=== PATIENT | female | born 1970 | race Two or more races ===

== ENCOUNTER 2017-09-23 12:33 | Day surgery (SDC) | payer OTHER ==
[2017-09-22 18:06] VITALS: BMI 29.5
[2017-09-23] MEDS ORDERED: MIDAZOLAM HCL 2 MG/2 ML SINGLE DOSE VIAL ONE (13:06)
--- NOTE | 2017-09-23 14:16 | HP ---
Admitting History and Physical - Admission Chief Complaint: Endometrial polyp History of Present Illness: 46 yo Para 1 with h/o endometrial polyp is pre op for D&C hysteroscopy. She's on Metformin for Diabetes. History Source: Patient Limitations to Obtaining History: No Limitations - Past Medical History ...LMP: 09/14/17 ...LMP Comment: REGULAR ...: No ...: 3 ...Para: 1 - Past Surgical History Past Surgical History: Yes: None - Smoking History Smoking history: Never smoked Have you smoked in the past 12 months: No - Alcohol/Substance Use Hx Alcohol Use: No - Social History Usual Living Arrangement: Yes: With Child History of Recent Travel: No Home Medications - Allergies Allergies/Adverse Reactions: Allergies Allergy/AdvReac Type Severity Reaction Status Date / Time No Known Drug Allergies Allergy Verified 09/22/17 18:06 - Home Medications Home Medications: Ambulatory Orders Glipizide [Glipizide ER] 1 tab PO DAILY 09/22/17 Janumet 50-1,000 mg Tablet 1 tab PO BID 09/22/17 Family Disease History - Family Disease History Family History: Unremarkable Review of Systems - Review of Systems Constitutional: reports: No Symptoms Eyes: reports: No Symptoms HENT: reports: No Symptoms Neck: reports: No Symptoms Cardiovascular: reports: No Symptoms Respiratory: reports: No Symptoms Gastrointestinal: reports: No Symptoms Genitourinary: reports: No Symptoms Breasts: reports: No Symptoms Reported Musculoskeletal: reports: No Symptoms Neurological: reports: No Symptoms Psychiatric: reports: No Symptoms Pain Intensity: 0 Physical Examination Vital Signs: Vital Signs Temperature 98.0 F 09/23/17 13:36 Pulse Rate 99 H 09/23/17 13:36 Respiratory Rate 16 09/23/17 13:36 Blood Pressure 126/89 09/23/17 13:36 O2 Sat by Pulse Oximetry (%) 99 09/23/17 13:36 Constitutional: Yes: Well Nourished Eyes: Yes: Conjunctiva Clear HENT: Yes: Atraumatic Neck: Yes: Supple Cardiovascular: Yes: Regular Rate and Rhythm Respiratory: Yes: Regular Gastrointestinal: Yes: Normal Bowel Sounds Breast(s): Yes: WNL Neurological: Yes: Alert, Oriented ...Motor Strength: WNL Psychiatric: Yes: Alert, Oriented Problem List - Problems (1) Endometrial polyp Code(s): N84.0 - POLYP OF CORPUS UTERI Assessment/Plan Endometrial polyp Pre op for D&C hysteroscopy Consent signed Anesthesia to see patient
[2017-09-23] MEDS ORDERED: ONDANSETRON 4 MG/2 ML VIAL IVPUSH PRN (14:34)
[2017-09-23] MEDS ORDERED: ACETAMINOPHEN 325 MG TABLET (FP) PO PRN (14:34)
[2017-09-23] MEDS ORDERED: oxyCODONE HCL 5 MG TABLET PO PRN (14:34)
[2017-09-23] MEDS ORDERED: LACTATED RINGERS SOLUTION 1,000 ML IV SCH (14:45)
--- NOTE | 2017-09-23 15:06 | OP ---
Operative Note - Note: Operative Date: 09/23/17 Pre-Operative Diagnosis: Endometrial polyp Operation: D&C Hysteroscopy Post-Operative Diagnosis: Same as Pre-op Surgeon: Phuong Okeefe Anesthesia: General Specimens Removed: Endometrial curetting Estimated Blood Loss (mls): 5 Operative Report Dictated: Yes
[2017-09-23 15:34] VITALS: TEMP 97.9
--- NOTE | 2017-09-23 16:01 | OP ---
DATE OF OPERATION: 09/23/2017 PREOPERATIVE DIAGNOSIS: Endometrial polyp. POSTOPERATIVE DIAGNOSIS: Endometrial polyp. PROCEDURE PERFORMED: Dilatation and curettage, hysteroscopy. SURGEON: Phuong Okeefe M.D. ANESTHESIA: General. COMPLICATIONS: None. ESTIMATED BLOOD LOSS: 5 mL. DESCRIPTION OF PROCEDURE: The patient was taken to the operating room, where general anesthesia was administered. The patient was then placed in the lithotomy position. She was then prepped and draped in the proper sterile fashion. Then a weighted speculum was placed in the vagina. The anterior lip of the cervix was grasped with a single-tooth tenaculum. The uterus was sounded to 7 cm. The endocervical os was then sequentially dilated with Aquino dilators. A 5-mm hysteroscope was then gently introduced into the uterine cavity. A sharp curettage was then performed. Then the instruments were removed. The patient was taken out of the lithotomy position. She was taken to the PACU in stable condition. PATHOLOGY: Endometrial curettings. PHUONG OKEEFE M.D. [id number]
[2017-09-23 17:34] VITALS: BP 123/76; PULSE 86
--- NOTE | 2017-09-25 18:24 | PATH ---
Surgical Pathology Report Patient Name: KIARA GROSS [facility]. Rec. #: [id number] /Age/Gender: 1970 (Age: 46) / F Account: [id number] Location: [facility] SURGICAL Taken: 09/23/2017 Received: 09/24/2017 Reported: 09/25/2017 Physicians: Phuong Okeefe M.D. Specimen(s) Received ENDOMETRIAL CURETTINGS Clinical History Endometrial polyp Final Diagnosis ENDOMETRIAL CURETTING, DILATION AND CURETTAGE: FRAGMENTS OF ENDOMETRIAL POLYP AND BENIGN CERVICAL TISSUE. Electronically Signed Jessie Aviles M.D. Gross Description Received in formalin labeled "endometrial curetting" are multiple fragments of pink-hoffmann hemorrhagic tissue measuring 3 x 2 x 1 cm in aggregate. Entire specimen submitted in one cassette. LOW/09/24/2017 chon/09/24/2017
== END 2017-09-23 17:32 | disposition home or self-care (01) ==
LOC: JASU-SURG 12:33
PROVIDERS: ATTEND Obstetrics & Gynecology
PROC: 0UDB7ZX Extraction of Endometrium, Via Natural or Artificial Opening, Diagnostic (ICD-10-PCS; principal; 2017-09-23 14:00)
PROC: 0UJD8ZZ Inspection of Uterus and Cervix, Via Natural or Artificial Opening Endoscopic (ICD-10-PCS; 2017-09-23 14:00)
DX: N84.0 Polyp of corpus uteri (principal); E11.9 Type 2 diabetes mellitus without complications
CPT/HCPCS: 82962; 84703; 88305-TC; 94760

== ENCOUNTER 2022-08-22 17:07 | Emergency (ER) | payer OTHER ==
[2022-08-22 17:20] VITALS: BP 114/68; PULSE 82; RESP 16; TEMP 98; BMI 31.7
== END 2022-08-22 23:10 | disposition home or self-care (01) ==
LOC: JER 17:07
DX: N64.4 Mastodynia (principal)
CPT/HCPCS: 76642-TC-LT; 84703; 99284-25